=== PATIENT | female | born 1985 | race Caucasian/White ===

== ENCOUNTER → 2021-07-19 14:36 | Outpatient (CLI) | payer BC, SELFPAY ==
--- NOTE | ~2021-07-19 | MR_ITS ---
EXAMINATION: MR knee RT wo con DATE: 07/19/2021 15:47 INDICATION: Right knee pain post injury 4 months prior. TECHNIQUE: Magnetic resonance imaging (MRI) of the right knee was performed without intravenous contr ast. Sequences included coronal PD-weighted FSE, coronal PD-weighted FS FSE, sagittal T2-weighted FS E, sagittal PD-weighted FS FSE and axial PD weighted fat saturated FSE. COMPARISON: None. FINDINGS: Medial compartment: Medial meniscus is normal. Articular cartilage is normal. Lateral compartment: Lateral meniscus is normal. Articular cartilage is normal. Patellofemoral compartment: Chondral fissuring involving less than 50% the cartilage thickness at the patellar apical ridge and m edial facet as well as at the the lateral aspect of the medial trochlea. Ligaments and tendons: Anterior and posterior cruciate ligaments are normal. The medial collateral ligament and fibular sury ateral ligament complex are normal. The extensor mechanism is normal. The visualized medial and later al hamstring tendons as well as the iliotibial band are normal. Fluid: Physiologic amount of fluid in the joint space. No loose osteochondral bodies identified. Small Arredondo 's cyst. Osseous/other: Normal marrow signal. No fracture or pathologic marrow replacing process. IMPRESSION: 1. Shallow chondral fissuring in the patellofemoral compartment. 2. Small Arredondo's cyst. Reviewed, dictated and finalized at location A. E DECORATOR
--- NOTE | ~2021-07-19 | MR_ITS ---
EXAMINATION: MR wrist RT wo con DATE: 07/19/2021 INDICATION: Chronic right wrist pain. TECHNIQUE: Magnetic resonance imaging (MRI) of the affected wrist was performed without intravenous c ontrast. Sequences performed include axial PD-weighted FSE and PD-weighted FS FSE, coronal PD-weighte d FS FSE and T1-weighted SE, and sagittal PD-weighted FS FSE and PD-weighted FSE. COMPARISON: None FINDINGS: Intrinsic ligaments: The scapholunate and lunotriquetral ligaments are normal. Triangular fibrocartilage complex (TFCC): Partial tear of the triangular fibrocartilage complex involving the central fibrocartilaginous disc, the dorsal radioulnar ligament extending to the foveal attachment. There is mild edema along intraoss eous cystic changes in the distal ulna underlying the foveal attachment. The ulnar collateral ligamen t, ulnotriquetral ligament and meniscal homologue are normal. The extensor carpi ulnaris tendon sheat h is normal. Extensor wrist: Extensor tendons of the wrist are normal. Small amount of fluid consistent with minimal tenosynovitis extending along the extensor carpi radialis tendons and the second dorsal compartments. Flexor wrist: The flexor tendons of the wrist are normal. No abnormality in the carpal tunnel with normal median n erve. Guyon's canal: Guyon's canal including the ulnar nerve and artery are normal. Bones/other: Bone alignment is normal. No fracture, avascular necrosis or pathologic marrow replacing process. Lorri int spaces are normal with no focal cartilage defects appreciated. IMPRESSION: 1. Partial tear of the triangular fibrocartilage complex involving the central fiber cartilaginous di sc, dorsal radioulnar ligament and foveal attachment. 2. Minimal tenosynovitis in the second dorsal compartment Reviewed, dictated and finalized at location A. [employer] IMPRESSION: 1. Partial tear of the triangular fibrocartilage complex involving the central fiber cartilaginous disc, dorsal radioulnar ligament and foveal attachment. 2. Minimal tenosynovitis in the second dorsal compartment
== END ==
PROVIDERS: Visit Provider Nurse Practitioner Adult Health
DX: M25.531 Pain in right wrist (principal); M71.21 Synovial cyst of popliteal space [Baker], right knee
CPT/HCPCS: 73221; 73721